=== PATIENT | female | born 1960 | race Caucasian/White ===

== ENCOUNTER → 2019-12-29 | Outpatient (CLI) | payer OTHER ==
--- NOTE | 2020-01-06 13:51 | REP ---
PET/CT: HISTORY: Lung nodule. COMPARISONS: Screening CT study of the chest from [facility] November 26, 2019 is interpreted as showing a 1 cm nodule in the left lung apex. TECHNIQUE: 52 minutes following the intravenous injection of a 8.62 mCi dose of F-18 FDG, three-dimensional PET scintigraphy is acquired from the skull base to the proximal thighs. Triplanar noncontrast CT scanning is acquired through the same anatomic range for attenuation correction, and image registration with scan parameters optimized to minimize radiation exposure to the patient. PET scintigraphy and CT datasets were fused and displayed on a workstation with multiplanar and projection display capability. PET/CT FINDINGS: Radionuclide uptake in the nodular density on the left apical pleural nodule is borderline. Maximum standard uptake value is 2.50. No other abnormal pulmonary parenchymal hypermetabolic uptake is seen. No abnormal hilar or mediastinal hypermetabolic uptake is seen. No abnormal adrenal uptake is observed. Head and neck soft tissues are unremarkable. No abnormal uptake is seen in the abdomen or pelvis. No abnormal skeletal uptake. IMPRESSION: Borderline FDG uptake in the left apical pleural based nodular density, SUV 2.50. Followup chest CT study versus histologic sampling recommended. Malignancy is not completely excluded. Electronically Signed by Ronnie Tinsley MD 01/06/2020 02:34 P
== END ==
LOC: M PLARAD 08:54
PROVIDERS: ATTEND Family Medicine
DX: R91.1 Solitary pulmonary nodule (principal)
CPT/HCPCS: 78815; A9552

== ENCOUNTER → 2020-07-06 | Outpatient (CLI) | payer OTHER ==
[~2020-07-06] MED LIST: ALBU8.5H INH; BUPR150T5 PO; GABA-843 PO; ISOVUE-370 76% 100ML VIAL As Ordered ONE; LEVO175T2 PO; OMEP-218 PO; PERCOCET PO; SIMV40TA20 PO; TERB250T12 PO; VITATAB74 PO
--- NOTE | 2020-08-07 09:45 | REP ---
CONTRAST ENHANCED CHEST CT CLINICAL: Follow-up solitary pulmonary nodule. TECHNIQUE: Axial contrast enhanced images from the thoracic inlet to the upper abdomen using 75 mL of Isovue-370 intravenous contrast material with coronal and sagittal reformations. COMPARISON: Multiple examination dating through 11/26/2019 FINDINGS: There is a 1 cm spiculated nodule at the left apex unchanged from prior examination. Remainder of the lung figueroa are relatively well-aerated and clear/stable. No further consolidation, nodule, or mass. No effusion. No pneumothorax. Mild emphysematous changes are suggested. The tracheobronchial tree is patent. No significant adenopathy is identified. The mediastinum demonstrates a normal thoracic aorta, pulmonary vasculature, and heart/pericardium. Surrounding musculoskeletal structures are intact and without acute abnormality. Limited evaluation of the upper abdomen demonstrates normal bilateral adrenal glands and evidence for cholelithiasis. IMPRESSION: Stable solitary nodular density in the left apex with spiculated margins unchanged from previous examination. Given the borderline FDG uptake on recent PET CT, sampling may be warranted. Differential diagnosis would include asymmetric apical scarring. MTDD
== END ==
LOC: M RAD 07:51
PROVIDERS: ATTEND Thoracic Surgery (Cardiothoracic Vascular Surgery)
DX: R91.1 Solitary pulmonary nodule (principal); J43.9 Emphysema, unspecified
CPT/HCPCS: 71260; Q9967

== ENCOUNTER → 2020-07-28 | Outpatient (CLI) | payer OTHER ==
[~2020-07-28] MED LIST changes: -ISOVUE-370 76% 100ML VIAL As Ordered ONE
[2020-07-28 14:00] LABS: APPEARANCE, URINE CLOUDY (CLEAR); BACTERIA, URINE AUTO NEGATIVE (NEGATIVE); BILIRUBIN, URINE AUTO NEGATIVE (NEGATIVE); BLOOD, URINE BLOOD NEGATIVE (NEGATIVE); COLOR, URINE YELLOW (YELLOW); GLUCOSE, URINE (UA) AUTO NEGATIVE (NEGATIVE); KETONE, URINE AUTO NEGATIVE (NEGATIVE); LEUKOCYTE ESTERASE, URINE AUTO TRACE (NEGATIVE); MUCUS, URINE SMALL (NEGATIVE); NITRITE, URINE AUTO NEGATIVE (NEGATIVE); PROTEIN, URINE AUTO NEGATIVE (NEGATIVE); RBC, URINE AUTO 2 /HPF (0-3); SPECIFIC GRAVITY URINE AUTO 1.025 (1.002-1.035); SQUAMOUS EPITHELIAL CELL UR AU 29 /HPF (0-6); UROBILINOGEN, URINE AUTO 0.2 mg/dL (0.0-2.0); WBC, URINE AUTO 3 /HPF (0-3)
[2020-07-28 14:07] LABS: BASO # 0.1 10^3/uL (0.0-0.2); BASO % 0.5 % (0.0-1.0); EOS # 0.3 10^3/uL (0.0-0.5); EOS % 2.2 % (0.0-3.0); HEMATOCRIT 43.6 % (36.0-47.0); HEMOGLOBIN 14.3 g/dl (12.0-15.5); LYMPH # 3.2 10^3/uL (1.5-5.0); LYMPH % 26.9 % (24.0-44.0); MEAN CORPUSCULAR HEMOGLOBIN 32.9 pg (27.0-33.0); MEAN CORPUSCULAR HGB CONC 32.8 g/dl (32.0-36.5); MEAN CORPUSCULAR VOLUME 100.2 fl (80.0-96.0); MONO # 0.6 10^3/uL (0.0-0.8); MONO % 5.2 % (0.0-5.0); NEUTROPHILS # 7.6 10^3/uL (1.5-8.5); NEUTROPHILS % 64.4 % (36.0-66.0); PLATELET COUNT, AUTOMATED 226 10^3/uL (150-450); RED BLOOD COUNT 4.35 10^6/uL (4.00-5.40); WHITE BLOOD COUNT 11.8 10^3/uL (4.0-10.0)
[2020-07-28 14:18] LABS: INR 0.9; PROTHROMBIN TIME 12.4 SECONDS (12.5-14.3)
[2020-07-28 14:32] LABS: CALCIUM LEVEL 9.5 MG/DL (8.5-10.1); CREATININE FOR GFR 1.36 MG/DL (0.55-1.30); GLOMERULAR FILTRATION RATE 42.5 (>51); POTASSIUM SERUM 4.2 MEQ/L (3.5-5.1)
[2020-07-28 14:45] LABS: ABG HCO3 22.8 MEQ/L (22.0-26.0); ABG O2 SATURATION 97.6 % (95.0-99.0); ABG PARTIAL PRESSURE CO2 35.5 mmHg (35.0-45.0); ABG PARTIAL PRESSURE O2 101.1 mmHg (75.0-100.0); ABG STANDARD HCO3 23.7 MEQ/L (22.0-26.0); ABG TOTAL CO2 23.9 MEQ/L (22.0-29.0); ABG pH (ARTERIAL) 7.426 UNITS (7.350-7.450)
--- NOTE | 2020-07-28 14:58 | REPVR ---
PROCEDURE INFORMATION: Exam: XR Chest, 2 Views Exam date and time: 07/28/2020 1:08 PM Age: 59 years old Clinical indication: Abnormal findings; Abnormal radiologic exam of lung or chest; Additional info: Pat TECHNIQUE: Imaging protocol: XR of the chest Views: 2 views. COMPARISON: CT Chest with contrast 07/06/2020 8:18 AM FINDINGS: Lungs: Emphysematous change and interstitial prominence. Pleural space: No pleural effusion. Heart/Mediastinum: No cardiomegaly. Bones/joints: Degenerative change. IMPRESSION: Emphysematous change and interstitial prominence. Electronically signed by: Tyrone Sumner On 07/28/2020 14:58:35 PM
--- NOTE | 2020-07-29 16:41 | ECGEPIP ---
[facility] Test Date: 2020-07-28 Pat Name: DARRICK RIVERA Department: Room: - Gender: Female Director Translation: CHAVO : 1960 Requested By: Mundo Laguna Order Number: [id number] Reading MD: Tariq Conley Measurements Intervals [place] Rate: 62 P: 72 VA: 173 QRS: 49 QRSD: 89 T: 57 QT: 388 QTc: 395 Interpretive Statements SINUS RHYTHM Comparison tracing not on file Electronically Signed on 07-29-2020 16:41:31 EDT by Tariq Conley
== END ==
LOC: M ADMPAT 12:58
PROVIDERS: ATTEND Thoracic Surgery (Cardiothoracic Vascular Surgery)
DX: R91.8 Other nonspecific abnormal finding of lung field (principal)

== ENCOUNTER → 2020-07-29 | Outpatient (CLI) | payer OTHER | LOC: M LABSMTC 10:42 | PROVIDERS: ATTEND Anesthesiology | DX: Z01.812 Encounter for preprocedural laboratory examination (principal); Z20.828 Contact with and (suspected) exposure to other viral communicable diseases | CPT/HCPCS: C9803; U0003 ==

== ENCOUNTER 2020-08-02 08:30 | Inpatient (IN) | payer OTHER ==
[~2020-08-02] VITALS: Ht 157.5 cm; Wt 104.1 kg
[~2020-08-02 08:30] MED LIST changes: -PERCOCET PO
[2020-08-03] VITALS (8 sets, daily range): BP systolic 91–128; BP diastolic 50–87
[2020-08-03] MEDS ORDERED: MIDAZOLAM INJ 2MG/2ML VIAL (J2250 PER 1MG) IV SCH (06:00)
[2020-08-03] MEDS ORDERED: LR 1,000 ML IV ONE (06:00)
[2020-08-03] MEDS ORDERED: fentaNYL 100 MCG/2 ML INJECTION (J3010) IV SCH (06:00)
[2020-08-03] MEDS ORDERED: BUPIVACAINE LIPOSOME/PF 1.3% 20ML VIAL (13.3MG/ML)(EXPAREL)(C9290 PER1MG) As Ordered ONE (06:39)
[2020-08-03] MEDS ORDERED: BUPIVACAINE HCL 0.5% 10ML VIAL As Ordered ONE (06:40)
[2020-08-03] MEDS ORDERED: CETACAINE SPRAY 5GM As Ordered ONE (06:40)
[2020-08-03] MEDS ORDERED: ceFAZolin 2 GM/D5W 50 ML IV BAG (J0690 PER 500MG) As Ordered ONE (08:47)
[2020-08-03] MEDS ORDERED: ACETAMINOPHEN 1000MG 100ML IV BTL (OFIRMEV) (J0131 PER 10MG) As Ordered ONE (09:11)
[2020-08-03] MEDS ORDERED: ALBUTEROL SULFATE 2.5 MG/0.5 ML INH NEB SOLN As Ordered ONE (09:11)
[2020-08-03] MEDS ORDERED: dexameTHASONE 4 MG/ML 1ML VIAL (J1100 PER 1MG) As Ordered ONE (09:11)
[2020-08-03] MEDS ORDERED: ONDANSETRON 4MG/2ML VIAL As Ordered ONE (09:11)
[2020-08-03] MEDS ORDERED: propofoL 200 MG/20 ML VIAL As Ordered ONE (09:11)
[2020-08-03] MEDS ORDERED: ROCURONIUM BROMIDE 50 MG/5 ML VIAL As Ordered ONE ×2 (09:11→11:10)
[2020-08-03] MEDS ORDERED: KETOROLAC 60MG 2ML VIAL As Ordered ONE (09:11)
[2020-08-03] MEDS ORDERED: SUGAMMADEX SODIUM 500 MG/5 ML VIAL (BRIDION) As Ordered ONE (09:11)
[2020-08-03] MEDS ORDERED: LIDOCAINE 2% JELLY 5ML TUBE As Ordered ONE (09:11)
[2020-08-03] MEDS ORDERED: MIDAZOLAM INJ 2MG/2ML VIAL (J2250 PER 1MG) As Ordered ONE ×2 (09:12→09:15)
[2020-08-03] MEDS ORDERED: fentaNYL 100 MCG/2 ML INJECTION (J3010) As Ordered ONE ×2 (09:12→09:15)
[2020-08-03] MEDS ORDERED: HYDROmorphone HCL 2 MG/ML 1ML VIAL (J1170) As Ordered ONE (09:12)
[2020-08-03] MEDS ORDERED: LIDOCAINE 2% 100MG/5ML SDV (FOR ANES.) As Ordered ONE (09:20)
[2020-08-03] MEDS ORDERED: NALOXONE INJ 0.4MG/1ML VIAL (J2310 PER 1MG) IV PRN (09:45)
[2020-08-03] MEDS ORDERED: WALLBOXKEY XX PRN (09:45)
[2020-08-03] MEDS ORDERED: ONDANSETRON 4MG/2ML VIAL IV PRN ×3 (09:45→13:45)
[2020-08-03] MEDS ORDERED: EPIDURAL/PCA KEYS XX PRN (09:45)
[2020-08-03] MEDS ORDERED: ALBUTEROL SULFATE 2.5 MG/0.5 ML INH NEB SOLN INH ONE (09:45)
[2020-08-03] MEDS ORDERED: METOCLOPRAMIDE INJ 10MG/2ML VIAL (J2765 PER 1) IV PRN (09:45)
[2020-08-03] MEDS ORDERED: PHENYLephrine HCL 500 MCG/5 ML (100MCG/ML) SYRINGE (J2370) As Ordered ONE (11:10)
[2020-08-03] MEDS ORDERED: BUPIVACAINE HCL 0.25% 30ML VIAL As Ordered ONE (12:19)
[2020-08-03] MEDS ORDERED: MUPIROCIN 2% OINT 22 GM TUBE As Ordered ONE (12:56)
[2020-08-03] MEDS ORDERED: FENTANYL 2MCG/ML BUPIVACAINE 0.0625% NACL 250ML IV BAG As Ordered ONE (13:03)
[2020-08-03] MEDS ORDERED: KCL 20MEQ IN D5/NS 1000ML 1,000 ML IV SCH (13:12)
[2020-08-03] MEDS ORDERED: PERCOCET 5MG/325MG TAB PO PRN ×2 (13:15)
[2020-08-03] MEDS ORDERED: LEVALBUTEROL 1.25 MG/0.5 ML CONCENTRATE NEB NEB PRN (13:15)
[2020-08-03] MEDS ORDERED: ACETAMINOPHEN TAB 650MG DOSE (2X325MG) PO PRN (13:15)
[2020-08-03] MEDS ORDERED: BISACODYL 10 MG SUPP PR PRN (13:15)
[2020-08-03] MEDS ORDERED: NORCO, ANEXSIA 5/325MG TABLET (HYDROcodone/ACETAMINOPHEN) PO PRN (13:15)
[2020-08-03] MEDS: FENTANYL/BUPIVACAINE/NACL BAG 250 ML EPIDURAL SCH (13:30)
[2020-08-03] MEDS ORDERED: KCL 20MEQ IN D5/0.9%NACL 1000 ML As Ordered ONE (13:35)
[2020-08-03 13:39] LABS: ABG BASE EXCESS -1.8 (-2.0-2.0); ABG HCO3 24.2 MEQ/L (22.0-26.0); ABG O2 SATURATION 98.2 % (95.0-99.0); ABG PARTIAL PRESSURE CO2 45.9 mmHg (35.0-45.0); ABG PARTIAL PRESSURE O2 111.1 mmHg (75.0-100.0); ABG TOTAL CO2 25.6 MEQ/L (22.0-29.0)
[2020-08-03] MEDS ORDERED: fentaNYL 100 MCG/2 ML INJECTION (J3010) IV PRN (13:45)
[2020-08-03] MEDS ORDERED: LR 1,000 ML IV SCH (13:45)
[2020-08-03] MEDS ORDERED: oxyCODONE 5MG TAB PO PRN (13:45)
[2020-08-03] MEDS ORDERED: HYDROMORPHONE HCL 0.5 MG/ 0.5 ML SYRINGE (J1170 PER 1) IV PRN (13:45)
[2020-08-03 13:47] LABS: BASO # 0.1 10^3/uL (0.0-0.2); BASO % 0.3 % (0.0-1.0); EOS # 0.1 10^3/uL (0.0-0.5); EOS % 0.8 % (0.0-3.0); HEMATOCRIT 39.8 % (36.0-47.0); HEMOGLOBIN 12.8 g/dl (12.0-15.5); LYMPH # 1.7 10^3/uL (1.5-5.0); LYMPH % 11.4 % (24.0-44.0); MEAN CORPUSCULAR HEMOGLOBIN 32.2 pg (27.0-33.0); MEAN CORPUSCULAR HGB CONC 32.2 g/dl (32.0-36.5); MONO # 0.3 10^3/uL (0.0-0.8); MONO % 1.8 % (0.0-5.0); NEUTROPHILS # 12.3 10^3/uL (1.5-8.5); NEUTROPHILS % 84.7 % (36.0-66.0); PLATELET COUNT, AUTOMATED 180 10^3/uL (150-450); RED BLOOD COUNT 3.98 10^6/uL (4.00-5.40); WHITE BLOOD COUNT 14.5 10^3/uL (4.0-10.0)
[2020-08-03 14:08] LABS: BLOOD UREA NITROGEN 19 MG/DL (7-18); CALCIUM LEVEL 8.6 MG/DL (8.5-10.1); CARBON DIOXIDE LEVEL 25 MEQ/L (21-32); CHLORIDE LEVEL 108 MEQ/L (98-107); CREATININE FOR GFR 0.84 MG/DL (0.55-1.30); GLOMERULAR FILTRATION RATE > 60.0 (>51); GLUCOSE, FASTING 137 MG/DL (70-100); POTASSIUM SERUM 4.2 MEQ/L (3.5-5.1); SODIUM LEVEL 140 MEQ/L (136-145)
[2020-08-03] MEDS: LEVALBUTEROL 1.25 MG/0.5 ML CONCENTRATE NEB NEB SCH ×2 (16:32→19:24)
[2020-08-03] MEDS ORDERED: FLUBLOK(EGG FREE)(QUAD)INFLUENZA VACC 0.5ML SYRINGE 18YRS & OLDER IM PRN (17:30)
[2020-08-03] MEDS: ceFAZolin SOD 1 GM in D5W MINI-BAG PLUS 50 ML IV SCH (18:26)
[2020-08-03] MEDS: diphenhydrAMINE 50MG/ML VIAL (J1200) IV PRN (18:33)
[2020-08-03] MEDS: DOCUSATE SODIUM 100 MG CAP PO SCH (21:20)
[2020-08-03] MEDS: SIMVASTATIN 40 MG TAB PO SCH (21:20)
[2020-08-03] MEDS: buPROPion **SR TABLET** (ZYBAN) 150MG PO SCH (21:21)
[2020-08-03] MEDS: GABAPENTIN 300 MG CAP PO SCH (21:21)
[2020-08-03] MEDS: HEPARIN SOD (PORCINE) 5000UNITS/ML 1ML VIAL/SYRINGE SC SCH (21:21)
[2020-08-04] VITALS (16 sets, daily range): BP systolic 92–136; BP diastolic 54–100
[2020-08-04] MEDS: LEVALBUTEROL 1.25 MG/0.5 ML CONCENTRATE NEB NEB SCH ×4 (00:36→20:35)
[2020-08-04] MEDS: ceFAZolin SOD 1 GM in D5W MINI-BAG PLUS 50 ML IV SCH ×3 (03:00→17:18)
[2020-08-04] MEDS: LEVOTHYROXINE 150MCG TABLET (0.15MG) PO SCH (05:45)
[2020-08-04] MEDS: diphenhydrAMINE 50MG/ML VIAL (J1200) IV PRN (05:45)
[2020-08-04] MEDS: LEVOTHYROXINE 25MCG TABLET (0.025MG) PO SCH (05:45)
[2020-08-04 05:52] LABS: ABG BASE EXCESS -1.2 (-2.0-2.0); ABG HCO3 22.7 MEQ/L (22.0-26.0); ABG O2 SATURATION 95.4 % (95.0-99.0); ABG PARTIAL PRESSURE O2 76.3 mmHg (75.0-100.0); ABG STANDARD HCO3 23.5 MEQ/L (22.0-26.0); ABG TOTAL CO2 23.7 MEQ/L (22.0-29.0); ABG pH (ARTERIAL) 7.429 UNITS (7.350-7.450)
[2020-08-04 05:55] LABS: BASO % 0.2 % (0.0-1.0); HEMATOCRIT 36.8 % (36.0-47.0); HEMOGLOBIN 11.8 g/dl (12.0-15.5); LYMPH % 13.1 % (24.0-44.0); MEAN CORPUSCULAR HEMOGLOBIN 32.1 pg (27.0-33.0); MEAN CORPUSCULAR HGB CONC 32.1 g/dl (32.0-36.5); MONO # 0.8 10^3/uL (0.0-0.8); MONO % 5.1 % (0.0-5.0); NEUTROPHILS # 12.1 10^3/uL (1.5-8.5); NEUTROPHILS % 80.9 % (36.0-66.0); PLATELET COUNT, AUTOMATED 201 10^3/uL (150-450); RED BLOOD COUNT 3.68 10^6/uL (4.00-5.40); WHITE BLOOD COUNT 14.9 10^3/uL (4.0-10.0)
[2020-08-04 06:11] LABS: BLOOD UREA NITROGEN 15 MG/DL (7-18); CALCIUM LEVEL 8.2 MG/DL (8.5-10.1); CARBON DIOXIDE LEVEL 27 MEQ/L (21-32); CHLORIDE LEVEL 108 MEQ/L (98-107); GLOMERULAR FILTRATION RATE > 60.0 (>51); GLUCOSE, FASTING 121 MG/DL (70-100); POTASSIUM SERUM 4.2 MEQ/L (3.5-5.1); SODIUM LEVEL 140 MEQ/L (136-145)
[2020-08-04] MEDS: buPROPion **SR TABLET** (ZYBAN) 150MG PO SCH ×2 (08:33→20:59)
[2020-08-04] MEDS: DOCUSATE SODIUM 100 MG CAP PO SCH ×2 (08:33→20:59)
[2020-08-04] MEDS: MOM 30ML SUSPENSION UDC PO SCH (08:34)
[2020-08-04] MEDS: PANTOPRAZOLE 40MG TAB (PROTONIX) PO SCH (08:34)
[2020-08-04] MEDS: HEPARIN SOD (PORCINE) 5000UNITS/ML 1ML VIAL/SYRINGE SC SCH ×2 (08:34→20:58)
[2020-08-04] MEDS: FENTANYL/BUPIVACAINE/NACL BAG 250 ML EPIDURAL SCH (16:35)
[2020-08-04] MEDS: SIMVASTATIN 40 MG TAB PO SCH (20:59)
[2020-08-04] MEDS: GABAPENTIN 300 MG CAP PO SCH (20:59)
[2020-08-05] VITALS: BP 128/90
[2020-08-05] MEDS: ceFAZolin SOD 1 GM in D5W MINI-BAG PLUS 50 ML IV SCH ×2 (01:20→09:09)
[2020-08-05] MEDS: LEVALBUTEROL 1.25 MG/0.5 ML CONCENTRATE NEB NEB SCH ×5 (01:59→20:01)
[2020-08-05 04:00] VITALS: BP 137/69
[2020-08-05] MEDS: LEVOTHYROXINE 150MCG TABLET (0.15MG) PO SCH (05:05)
[2020-08-05] MEDS: LEVOTHYROXINE 25MCG TABLET (0.025MG) PO SCH (05:05)
[2020-08-05 05:40] LABS: BASO # 0.1 10^3/uL (0.0-0.2); BASO % 0.4 % (0.0-1.0); EOS # 0.2 10^3/uL (0.0-0.5); EOS % 1.5 % (0.0-3.0); HEMATOCRIT 38.2 % (36.0-47.0); HEMOGLOBIN 11.9 g/dl (12.0-15.5); LYMPH # 2.8 10^3/uL (1.5-5.0); LYMPH % 24.2 % (24.0-44.0); MEAN CORPUSCULAR HGB CONC 31.2 g/dl (32.0-36.5); MEAN CORPUSCULAR VOLUME 102.7 fl (80.0-96.0); MONO # 0.6 10^3/uL (0.0-0.8); MONO % 5.3 % (0.0-5.0); NEUTROPHILS # 7.9 10^3/uL (1.5-8.5); NEUTROPHILS % 67.8 % (36.0-66.0); PLATELET COUNT, AUTOMATED 184 10^3/uL (150-450); RED BLOOD COUNT 3.72 10^6/uL (4.00-5.40); WHITE BLOOD COUNT 11.7 10^3/uL (4.0-10.0)
[2020-08-05 06:02] LABS: BLOOD UREA NITROGEN 24 MG/DL (7-18); CALCIUM LEVEL 8.8 MG/DL (8.5-10.1); CARBON DIOXIDE LEVEL 29 MEQ/L (21-32); CHLORIDE LEVEL 109 MEQ/L (98-107); GLOMERULAR FILTRATION RATE > 60.0 (>51); GLUCOSE, FASTING 123 MG/DL (70-100); POTASSIUM SERUM 4.4 MEQ/L (3.5-5.1); SODIUM LEVEL 142 MEQ/L (136-145)
[2020-08-05 08:00] VITALS: BP 144/74
[2020-08-05] MEDS: PANTOPRAZOLE 40MG TAB (PROTONIX) PO SCH (09:09)
[2020-08-05] MEDS: MOM 30ML SUSPENSION UDC PO SCH (09:09)
[2020-08-05] MEDS: HEPARIN SOD (PORCINE) 5000UNITS/ML 1ML VIAL/SYRINGE SC SCH ×2 (09:09→20:31)
[2020-08-05] MEDS: DOCUSATE SODIUM 100 MG CAP PO SCH ×2 (09:09→20:32)
[2020-08-05] MEDS: buPROPion **SR TABLET** (ZYBAN) 150MG PO SCH ×2 (09:09→20:32)
[2020-08-05 12:00] VITALS: BP 160/92
[2020-08-05] MEDS: FENTANYL/BUPIVACAINE/NACL BAG 250 ML EPIDURAL SCH (13:30)
[2020-08-05 16:00] VITALS: BP 138/78
[2020-08-05 20:00] VITALS: BP 134/82
[2020-08-05] MEDS: SIMVASTATIN 40 MG TAB PO SCH (20:32)
[2020-08-05] MEDS: GABAPENTIN 300 MG CAP PO SCH (20:32)
[2020-08-06] VITALS: BP 123/64
[2020-08-06] MEDS: LEVALBUTEROL 1.25 MG/0.5 ML CONCENTRATE NEB NEB SCH ×2 (01:53→08:00)
[2020-08-06 04:00] VITALS: BP 109/57
[2020-08-06] MEDS: LEVOTHYROXINE 150MCG TABLET (0.15MG) PO SCH (05:08)
[2020-08-06] MEDS: LEVOTHYROXINE 25MCG TABLET (0.025MG) PO SCH (05:08)
[2020-08-06 06:28] LABS: BASO % 0.3 % (0.0-1.0); EOS # 0.3 10^3/uL (0.0-0.5); EOS % 2.8 % (0.0-3.0); HEMATOCRIT 35.7 % (36.0-47.0); HEMOGLOBIN 11.5 g/dl (12.0-15.5); LYMPH # 2.8 10^3/uL (1.5-5.0); LYMPH % 27.1 % (24.0-44.0); MEAN CORPUSCULAR HEMOGLOBIN 32.8 pg (27.0-33.0); MEAN CORPUSCULAR HGB CONC 32.2 g/dl (32.0-36.5); MEAN CORPUSCULAR VOLUME 101.7 fl (80.0-96.0); MONO # 0.6 10^3/uL (0.0-0.8); MONO % 5.4 % (0.0-5.0); NEUTROPHILS # 6.6 10^3/uL (1.5-8.5); NEUTROPHILS % 63.4 % (36.0-66.0); PLATELET COUNT, AUTOMATED 176 10^3/uL (150-450); RED BLOOD COUNT 3.51 10^6/uL (4.00-5.40); WHITE BLOOD COUNT 10.4 10^3/uL (4.0-10.0)
[2020-08-06 06:52] LABS: BLOOD UREA NITROGEN 17 MG/DL (7-18); CALCIUM LEVEL 8.9 MG/DL (8.5-10.1); CARBON DIOXIDE LEVEL 28 MEQ/L (21-32); CHLORIDE LEVEL 108 MEQ/L (98-107); CREATININE FOR GFR 0.85 MG/DL (0.55-1.30); GLOMERULAR FILTRATION RATE > 60.0 (>51); GLUCOSE, FASTING 115 MG/DL (70-100); SODIUM LEVEL 138 MEQ/L (136-145)
[2020-08-06 08:00] VITALS: BP 138/88
[2020-08-06] MEDS: buPROPion **SR TABLET** (ZYBAN) 150MG PO SCH (08:48)
[2020-08-06] MEDS: DOCUSATE SODIUM 100 MG CAP PO SCH (08:48)
[2020-08-06] MEDS: PANTOPRAZOLE 40MG TAB (PROTONIX) PO SCH (08:48)
[2020-08-06] MEDS: HEPARIN SOD (PORCINE) 5000UNITS/ML 1ML VIAL/SYRINGE SC SCH (08:49)
[2020-08-06] MEDS: MOM 30ML SUSPENSION UDC PO SCH (08:49)
[2020-08-06] MEDS ORDERED: PERCOCET PO (10:32)
[2020-08-06] MEDS ORDERED: FLUBLOK(EGG FREE)(QUAD)INFLUENZA VACC 0.5ML SYRINGE 18YRS & OLDER IM ONE (12:30)
--- NOTE | 2020-08-10 08:35 | RO ---
DATE OF OPERATION: 08/03/2020 PREOPERATIVE DIAGNOSIS: Left upper lobe lesion. POSTOPERATIVE DIAGNOSIS: Left upper lobe inflammatory lesion, not malignant. SURGEON: Mundo Lozoya M.D. OCULAR CARE AIDE: PROCEDURE: VATS, left upper lobe wedge resection with extensive lysis of adhesions, five level rib block, and bronchoscopy. ANESTHESIA: FINDINGS: Bronchoscopy revealed a normal branching tracheobronchial tree. There were no interbronchial lesions. There was a modicum of mucus which was suction aspirated. The left VATS wedge resection revealed very dense adhesions to the apex of the cupola. These were taken down by the use of the harmonic scalpel. Care was taken to avoid the subclavian artery. PROCEDURE NOTE: Under satisfactory general anesthesia and single lumen endotracheal intubation, bronchoscope was passed into the tracheobronchial tree. The above findings were noted. Each segment and subsegment was thoroughly inspected and there were no endobronchial lesions. There were a fair amount of secretions and these were suction aspirated. Patient then underwent double lumen intubation. The patient was then placed in the right lateral decubitus position and sterilely prepped and draped in the usual fashion. The lung was deflated and the first port was inserted under inflation with the lung falling away from the chest wall. Inspection with the 5 mm scope showed the dense adhesions in the cupola. The remainder of the lung was not adherent. Two additional ports were placed. Then, after a tedious dissection of the adhesions, the lung could be freed up and prepared for wedge resection. The lysis of adhesions were accompanied by nuisance bleeding, which had to be controlled in order to continue the dissection. The apex of the lung was then stapled off and wedged with three firings of the DW[employer]NE [place] stapler. Specimen was sent for frozen section which was reported back as without malignancy. I personally went to the lab to look at the specimens with the pathologist. A five level rib block consisting of Exparel and Marcaine was instilled. Two chest tubes were placed; one posteriorly #24 curved, and one anteriorly #24 straight. The remaining incision that had been used for the 12 mm port was closed with running 0 Vicryl suture and then with 4-0 Monocryl suture. Chest was suctioned with Pleur-evac and lung was reinflated. The patient tolerated the procedure well and left the operating room in satisfactory condition to the recovery room. [facility] SYSTEM[facility]
--- NOTE | 2020-08-10 08:38 | DSES ---
DATE OF ADMISSION: 08/03/2020 DATE OF DISCHARGE: 08/06/2020 DISCHARGE DIAGNOSES: 1. Left upper lobe benign inflammatory lesion. 2. Hypothyroidism. 3. Tobacco abuse. 4. Chronic obstructive pulmonary disease. 5. Gastroesophageal reflux disease. HOSPITAL COURSE: The patient is a 59-year-old white female who underwent a mammogram and as part of the workup underwent a chest x-ray. The lesion was in the left upper apex. She was virtually asymptomatic. She does have a history of smoking, however. There was no cough, no fever, chills, or sweats, no sputum production and no chest pain. Chest CT following the chest x-ray showed a spiculated left upper lobe lesion. There was some question as to whether this represented scar or whether it was indeed a true lesion. It did not uptake glucose on PET scan. It was thought to be difficult if not impossible to biopsy this lesion. The patient was given a choice of following the lesion or having it excised with a definitive diagnosis and possible cancer resection should it be positive. She opted for resection and she was therefore taken to the operating room where she underwent extensive lysis of adhesions in the apex with a wedge resection of the lesion on the left side with VATS techniques. The lesion turned up to be benign, fibrotic and inflammatory. She had a benign postoperative course with the chest tubes being removed on the second postoperative day. Her pain was well controlled. DISCHARGE MEDICATIONS: She is being discharged on her home medications which include: - Albuterol HFA two puffs p.r.n. shortness of breath - Bupropion 150 mg twice a day - Gabapentin 600 mg once daily at bedtime - Synthroid 175 mcg daily - Omeprazole 20 mg daily - Percocet 5/325 every 6 hours p.r.n. pain - Simvastatin 40 mg daily - Terbinafine 250 mg daily - Multivitamins, iron, and folic acid one tablet daily Discharge hemoglobin and hematocrit 11.5 and 35.7 respectively with a white count of 10.4, and a platelet count of 176. Electrolytes were normal with a BUN and creatinine of 17 and 0.85. Her chest x-ray showed her lung fully expanded to the chest wall. Costophrenic angles were sharp and I did not see any infiltrates. She is being discharged home and will follow up with me in the office in one week with a chest x-ray. [facility]
--- NOTE | 2020-08-10 08:43 | IPN ---
DATE: 08/04/2020 This is now the first postoperative day for Mrs. Huynh, status post her left upper lobe wedge resection and lysis of adhesions There is no air leak today. Her pain is being well controlled with the epidural. Her vital signs show a maximum temperature of 98.6 with a heart rate that is ranging between 66-77 in a sinus rhythm, respiratory rate of 18 and 19 without the use of accessory muscle, who is 94% saturated now on room air and whose blood pressure is ranging between 127/70-99/57. Her intake and output for the past 24 hours has been recorded as 1496 in and 1620 out, for a negativity of 125 mL. She has put 70 mL out of the chest tube. There is no air leak. She weighs 102.8 kg today compared to 101.9 kg yesterday. PHYSICAL EXAMINATION: She has some coarse rhonchi, which cleared with coughing on both sides. Percussion note is full to the diaphragma. Cardiac exam is without murmurs, clicks, gallops, or rubs. I cannot feel her point of maximal impulse (PMI). S1 and S2 are normal. Abdomen is soft and nontender. Bowel sounds are positive. She is slightly tympanitic and distended. She is passing flatus. Extremities show no pretibial edema, no calf tenderness, no differential swelling of the upper extremities. Skin is warm, dry, and perfused without cyanosis or mottling, including that of the nailbeds and knees. Neck is supple. There is no jugular venous distention. No subcutaneous emphysema. Trachea is midline. Mouth shows the mucous membranes to be pink and moist. Lips and commissures without lesions. No thrush. Eyes show her pupils to be equal and reactive. Extraocular muscles intact. Sclerae anicteric. Neurologic shows II-XII intact. Normal gross motor, gross sensation intact. Gait is not tested. Psychiatric shows her to awake, alert, and oriented times three with appropriate mood and affect and conversational. Her white count today is 14.9 with hemoglobin and hematocrit 11.8 and 36.8, respectively. Platelet count is 201. Differential shows 80% neutrophils, 13% lymphocytes, 5% monocytes. There are no immature forms. No toxic granulations. Her electrolytes are essentially normal with a BUN and creatinine of 15 and 0.90 with a glucose of 121 and calcium 8.2. Her chest x-ray today shows her lungs fully expanded to the chest wall with sharp costophrenic angles. I see no infiltrates. There is some atelectasis on the left side. Chest tube is in good place. IMPRESSION: 1. Postoperative day #1 status post left upper lobe wedge resection and lysis of adhesions. 2. 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 3. Diabetes. 4. Hypertension. 5. Chronic obstructive pulmonary disease (COPD). 6. Hypothyroidism. 7. Hyperlipidemia. PLAN AND DISCUSSION: I will discontinue her suction today. Will discontinue arterial line. I will transfer her to the progressive care unit (PCU). Hopefully I will be able to remove the tubes tomorrow. TERRY
--- NOTE | 2020-08-10 08:46 | IPN ---
DATE: 08/05/2020 SUBJECTIVE: This is now the second postoperative day for Ms. Huynh. Her pain is being well controlled. She is only on 4 mL of the epidural. She put out minimally from the chest tube. PHYSICAL EXAMINATION: Her vitals are a maximum temperature (T-max) of 98.6 with a heart rate that ranges between 79 and 90, respiratory rate 18-22 without use of accessory muscles. She was 97-91% saturated on room air and her blood pressures ranged between 160/92 to 128/90. Her intake and output the past 24 hours has been recorded as 6032 in and 7088 out for a negativity of 150 mL. She put 58 mL in the chest tube. Her weight today is 105.8 kg compared to 102 .8 kg yesterday. On physical examination she has coarse rhonchi which clear with coughing in the left hemithorax. Percussion notes are full through the diaphragm. Cardiac exam is without murmurs, clicks, gallops, or rubs. I cannot feel her PMI. S1, S2 are normal. Abdomen is soft, nontender, slightly distended and tympanitic. Bowel sounds are positive. There is no hepatomegaly. No CVA tenderness. Extremities show 1+ pretibial edema, no calf tenderness. She has no differential swelling of the upper extremities. Skin is warm and dry and perfused without cyanosis or mottling including that of the nailbeds and knees. Neck is supple. There is no jugular venous distention, no subcutaneous emphysema. Trachea is midline. Mouth shows her mucous membranes to be pink and moist. Lips, gums, tongue show no thrush. Eyes show her pupils to be equal and reactive. Extraocular movements are intact. Sclerae nonicteric. Neuro shows CN II-XII intact with gross motor, gross sensation intact. Gait is not tested. Psychiatric shows her to be awake and alert and oriented times three with appropriate mood and affect and conversational. Her white count today is 11.7 with a hemoglobin and hematocrit of 11.9 and 38.2, unchanged from yesterday. Platelet count is 184 and stable. Differential shows 67% neutrophils, 34 lymphocytes, 5 % monocytes, normal troponin. No toxic granulations. Her chemistries today show essentially electrolytes with a BUN and creatinine of 24 and 1.0. Glucose is 123 with a calcium of 8.8. Chest x-ray today shows a small pneumothorax and apical airspace in the left upper hemithorax. Costophrenic angles are clear. I see no infiltrates. Staple lines are clearly seen. IMPRESSION: 1. Left upper lobe lung mass, inflammatory, nonmalignant. 2. Hypothyroidism. 3. Gastroesophageal reflux disease. 4. Obesity. PLAN DISCUSSION: 1. I will discontinue her chest tubes today and wean her epidural and discontinue her Hernández. 2. If her chest x-ray is okay tomorrow, I will plan for discharge. 3. We will maintain her on oral pain medications. TERRY
--- NOTE | 2020-08-10 08:51 | REP ---
PORTABLE CHEST X-RAY: SINGLE VIEW HISTORY: Status post wedge resection left upper lobe. COMPARISON: 07/28/2020. FINDINGS: Monitoring electrodes overlie the chest. There are two left chest tubes in place. There is a small collection of apical pleural air on the left adjacent to the more superior of the catheters. There is linear parenchymal opacity along the suture line in the left apex medially. The remainder of the left lung is well-inflated. There is discoid atelectasis parallel to the right chest wall in the periphery of the right lung. An epidural catheter is noted in place. Monitoring electrodes are seen. IMPRESSION: Postthoracotomy changes on the left with to left chest tubes and a small apical pleural air collection. There is a linear pattern if discoid atelectasis in the right lung periphery. MTDD
--- NOTE | 2020-08-10 08:54 | REP ---
CHEST X-RAY: CLINICAL: Status post left upper lobe wedge resection. TECHNIQUE: PA and lateral COMPARISON: 08/03/20 FINDINGS: Two left-sided chest tubes and stable postoperative changes are appreciated, including trace left apical pneumothorax. The right hemithorax is clear. The mediastinum and cardiac silhouette appear normal. Skeletal structures are intact. IMPRESSION: Miniscule left apical pneumothorax and trace right-sided post surgical changes. No new acute process appreciated. MTDD
--- NOTE | 2020-08-10 08:56 | REP ---
TWO-VIEW CHEST HISTORY: Wedge resection left upper lobe. COMPARISON STUDY: 08/05/2020. TECHNIQUE: Two views of the chest are performed. FINDINGS: There has been removal of the two left chest tubes when compared to the prior exam. No definite pneumothorax is seen. There is mild left apical pleural fluid or thickening. Suture line is seen medially in the left upper lobe. Lungs are unchanged in appearance. Heart and mediastinum are unchanged. There are mild degenerative changes of the spine. MTDD
--- NOTE | 2020-08-14 11:44 | DS ---
DATE OF ADMISSION: 08/03/2020 DATE OF DISCHARGE: 08/06/2020 DISCHARGE DIAGNOSES: * Left upper lobe benign inflammatory lesion. * Hypothyroidism. * Tobacco abuse. * Chronic obstructive pulmonary disease. * Gastroesophageal reflux disease. HOSPITAL COURSE: The patient is a 59-year-old white female who underwent a mammogram and as part of the workup underwent a chest x-ray. The lesion was in the left upper apex. She was virtually asymptomatic. She does have a history of smoking, however. There was no cough, no fever, chills, or sweats, no sputum production and no chest pain. Chest CT following the chest x-ray showed a spiculated left upper lobe lesion. There was some question as to whether this represented scar or whether it was indeed a true lesion. It did not uptake glucose on PET scan. It was thought to be difficult if not impossible to biopsy this lesion. The patient was given a choice of following the lesion or having it excised with a definitive diagnosis and possible cancer resection should it be positive. She opted for resection and she was therefore taken to the operating room where she underwent extensive lysis of adhesions in the apex with a wedge resection of the lesion on the left side with VATS techniques. The lesion turned up to be benign, fibrotic and inflammatory. She had a benign postoperative course with the chest tubes being removed on the second postoperative day. Her pain was well controlled. DISCHARGE MEDICATIONS: She is being discharged on her home medications which include: - Albuterol HFA two puffs p.r.n. shortness of breath - Bupropion 150 mg twice a day - Gabapentin 600 mg once daily at bedtime - Synthroid 175 mcg daily - Omeprazole 20 mg daily - Percocet 5/325 every 6 hours p.r.n. pain - Simvastatin 40 mg daily - Terbinafine 250 mg daily - Multivitamins, iron, and folic acid one tablet daily Discharge hemoglobin and hematocrit 11.5 and 35.7 respectively with a white count of 10.4, and a platelet count of 176. Electrolytes were normal with a BUN and creatinine of 17 and 0.85. Her chest x-ray showed her lung fully expanded to the chest wall. Costophrenic angles were sharp and I did not see any infiltrates. She is being discharged home and will follow up with me in the office in one week with a chest x-ray. TERRY
--- NOTE | 2020-08-23 11:55 | REP ---
TWO-VIEW CHEST COMPARISON: 08/04/2020 HISTORY: Wedge resection left upper lobe. TECHNIQUE: Two views of the chest are performed. FINDINGS: Small left apical pneumothorax is unchanged. There are two left chest tubes in place, unchanged in position. Very mild bibasilar atelectatic changes. Heart and mediastinum are unchanged. IMPRESSION: Stable exam. MTDD
== END 2020-08-06 12:00 | disposition home or self-care (01) | DRG 144 ==
LOC: M OR 08-03 07:49 → EDSTATUS 08-03 10:00 → M ICU 08-03 15:23 → M PCU 08-04 18:40
PROVIDERS: ADMIT Thoracic Surgery (Cardiothoracic Vascular Surgery); ATTEND Thoracic Surgery (Cardiothoracic Vascular Surgery)
PROC: 0BBL8ZX Excision of Left Lung, Via Natural or Artificial Opening Endoscopic, Diagnostic (ICD-10-PCS; 2020-08-03)
PROC: 0BJ08ZZ Inspection of Tracheobronchial Tree, Via Natural or Artificial Opening Endoscopic (ICD-10-PCS; principal; 2020-08-03 10:00)
DX: R91.8 Other nonspecific abnormal finding of lung field (principal); I10 Essential (primary) hypertension; F17.200 Nicotine dependence, unspecified, uncomplicated; E03.9 Hypothyroidism, unspecified; J44.9 Chronic obstructive pulmonary disease, unspecified; K21.9 Gastro-esophageal reflux disease without esophagitis; Z79.899 Other long term (current) drug therapy; E11.9 Type 2 diabetes mellitus without complications; E78.5 Hyperlipidemia, unspecified; E66.9 Obesity, unspecified

== ENCOUNTER → 2020-08-17 | Outpatient (CLI) | payer OTHER ==
[~2020-08-17] MED LIST changes: +PERCOCET PO
--- NOTE | 2020-08-22 08:15 | REP ---
CHEST X-RAY: 2-VIEWS HISTORY: Solitary pulmonary nodule. Postop. COMPARISON: Chest x-ray 08/06/2020. FINDINGS: There is left apical pleural parenchymal thickening and fibrosis with some left apical sutures post thoracotomy. Lung figueroa are otherwise well-inflated and clear. There is no evidence of pneumothorax or hydrothorax. Heart is not enlarged. No bony abnormality is seen. Pulmonary vasculature is not increased. IMPRESSION: Post thoracotomy changes left apex with some improved parenchymal density since the 08/06/2020 study. Otherwise negative. MTDD
== END ==
LOC: M LAB 08:02
PROVIDERS: ATTEND Thoracic Surgery (Cardiothoracic Vascular Surgery)
DX: R91.1 Solitary pulmonary nodule (principal); J43.9 Emphysema, unspecified

== ENCOUNTER → 2021-05-16 | Outpatient (CLI) | payer OTHER ==
[~2021-05-16] MED LIST changes: +GABA-282 PO; -GABA-843 PO
--- NOTE | 2021-05-16 14:09 | REP ---
INDICATION: LUNG CANCER SCREENING, HX SMOKER COMPARISON: 07/06/2020 TECHNIQUE: Axial noncontrast images from the thoracic inlet to the upper abdomen using low-dose lung screening technique (LDCT). FINDINGS: Postsurgical changes at the left apex. Lung figueroa are otherwise well aerated and essentially clear. No consolidation, suspicious nodule or mass. No effusion. No pneumothorax. Tracheobronchial tree is patent. IMPRESSION: Lung-RADS category 2. Stable changes at the left apex. No suspicious nodule or mass. Management recommendations include annual low-dose CT surveillance. <Electronically signed by Dimas Isabel > 05/16/21 1942
== END ==
LOC: M PLAIMG 13:20
PROVIDERS: ATTEND Internal Medicine Pulmonary Disease
DX: Z12.2 Encounter for screening for malignant neoplasm of respiratory organs (principal); Z87.891 Personal history of nicotine dependence